=== PATIENT | female | born 1950 ===

== ENCOUNTER → 2016-10-14 | Outpatient (CLI) | payer OTHER | LOC: MRI 12:14 | DX: D49.2 Neoplasm of unspecified behavior of bone, soft tissue, and skin (principal); J32.0 Chronic maxillary sinusitis ==

== ENCOUNTER → 2017-12-03 | Outpatient (CLI) | payer OTHER | LOC: MRI 11:25 | DX: D18.01 Hemangioma of skin and subcutaneous tissue (principal) ==